=== PATIENT | female | born 1995 | race Caucasian/White ===

== ENCOUNTER 2017-02-10 18:31 | Emergency (ER) | payer MEDICAID ==
[2017-02-10 20:16] LABS: BASOPHIL % 0.3 % (0-2); PLATELET COUNT 251 x10^3mcL (130-400)
[2017-02-10 20:21] LABS: RED CELL DISTRIBUTION WIDTH 14.9 % (11.5-14.5)
[2017-02-10 20:22] LABS: CALCIUM 8.7 mg/dL (8.5-10.1); CARBON DIOXIDE 26.8 mmol/L (21-32); CHLORIDE SERUM 103 mmol/L (98-107); CREATININE SERUM 0.7 mg/dL (0.6-1.0); GFR1 > 60 mL/min; GLUCOSE SERUM 114 mg/dL (74-106); POTASSIUM SERUM 3.7 mmol/L (3.5-5.1); SODIUM SERUM 138 mmol/L (136-145)
[2017-02-10 20:26] LABS: ALBUMIN 3.5 g/dL (3.4-5.0); ALKALINE PHOSPHATASE 82 U/L (46-116); ALT/SGPT 20 U/L (14-59); AMYLASE 37 U/L (25-115); AST/SGOT 13 U/L (15-37); BILIRUBIN TOTAL 0.31 mg/dL (0.20-1.00); LIPASE 190 IU/L (73-393); TOTAL PROTEIN, SERUM 8.1 g/dL (6.4-8.2)
[2017-02-10 21:52] VITALS: BP 102/64
== END 2017-02-10 21:52 | disposition home or self-care (01) ==
LOC: ED 18:31
PROVIDERS: Emergency Medicine
DX: R10.33 Periumbilical pain (principal); R11.0 Nausea
CPT/HCPCS: 36415; 83880; J1885

== ENCOUNTER 2017-04-13 21:56 | Emergency (ER) | payer SELFPAY ==
[~2017-04-13] VITALS: Ht 165.1 cm; Wt 114.8 kg
[2017-04-13 22:47] VITALS: BP 131/76
== END 2017-04-13 22:47 | disposition home or self-care (01) ==
LOC: ED 21:56
DX: J40 Bronchitis, not specified as acute or chronic (principal); J06.9 Acute upper respiratory infection, unspecified; Z79.51 Long term (current) use of inhaled steroids
CPT/HCPCS: J1885

== ENCOUNTER 2017-06-14 13:28 | Emergency (ER) | payer SELFPAY ==
[~2017-06-14] VITALS: Ht 162.6 cm; Wt 115.7 kg
[2017-06-14 13:33] VITALS: Ht 162.6 cm; Wt 115.7 kg
[2017-06-14 15:31] VITALS: BP 128/61
== END 2017-06-14 15:31 | disposition home or self-care (01) ==
LOC: ED 13:28
DX: S16.1XXA Strain of muscle, fascia and tendon at neck level, initial encounter (principal); S46.912A Strain of unspecified muscle, fascia and tendon at shoulder and upper arm level, left arm, initial encounter; V49.9XXA Car occupant (driver) (passenger) injured in unspecified traffic accident, initial encounter; Y93.89 Activity, other specified; Y99.8 Other external cause status; Y92.89 Other specified places as the place of occurrence of the external cause

== ENCOUNTER 2017-07-19 20:21 | Inpatient (IN) | payer SELFPAY ==
[~2017-07-19] VITALS: Ht 165.1 cm; Wt 113.5 kg
[2017-07-19 20:35] VITALS: Ht 165.1 cm; Wt 113.5 kg
[2017-07-19 22:16] LABS: BASOPHIL % 0.2 % (0-2); PLATELET COUNT 322 x10^3mcL (130-400)
[2017-07-19 22:17] LABS: RED CELL DISTRIBUTION WIDTH 15.3 % (11.5-14.5)
[2017-07-19 22:24] LABS: CALCIUM 9.2 mg/dL (8.5-10.1); CARBON DIOXIDE 28.1 mmol/L (21-32); CHLORIDE SERUM 102 mmol/L (98-107); CREATININE SERUM 0.7 mg/dL (0.6-1.0); GFR1 > 60 mL/min; GLUCOSE SERUM 111 mg/dL (74-106); POTASSIUM SERUM 3.7 mmol/L (3.5-5.1); SODIUM SERUM 141 mmol/L (136-145)
[2017-07-19 22:28] LABS: ALBUMIN 3.9 g/dL (3.4-5.0); ALKALINE PHOSPHATASE 92 U/L (46-116); ALT/SGPT 11 U/L (14-59); AMYLASE 57 U/L (25-115); AST/SGOT 18 U/L (15-37); LIPASE 116 IU/L (73-393)
[2017-07-19 22:30] LABS: TOTAL PROTEIN, SERUM 8.6 g/dL (6.4-8.2)
[2017-07-20] VITALS (7 sets, daily range): BP systolic 97–124; BP diastolic 48–70
[2017-07-20 00:27] LABS: microscopic required? NO
[2017-07-20 00:42] LABS: UA SPECIFIC GRAVITY 1.015 (1.005-1.035); urine erythrocyte NEGATIVE (NEGATIVE)
[2017-07-20 01:03] LABS: AMPHETAMINE QUAL UR NONE DETECTED (NEG <=1000)
[2017-07-20 01:12] LABS: T3 TOTAL 1.26 ng/mL
[2017-07-20 01:13] LABS: CHOLESTEROL/HDL RATIO 4.5; FREE T4 1.04 ng/dL (0.76-1.46); FREE THYROXINE INDEX 2.7 ug/dL (1.4-4.5); MAGNESIUM 2.1 mg/dL (1.8-2.4); PHOSPHOROUS 3.4 mg/dL (2.5-4.9); T4(THYROXINE) 8.9 ug/dL (4.7-13.3)
[2017-07-20 06:12] LABS: BASOPHIL % 0.3 % (0-2); PLATELET COUNT 277 x10^3mcL (130-400)
[2017-07-20 06:22] LABS: RED CELL DISTRIBUTION WIDTH 15.6 % (11.5-14.5)
[2017-07-20 06:58] LABS: CALCIUM 8.6 mg/dL (8.5-10.1); CARBON DIOXIDE 27.5 mmol/L (21-32); CHLORIDE SERUM 105 mmol/L (98-107); CREATININE SERUM 0.8 mg/dL (0.6-1.0); GFR1 > 60 mL/min; GLUCOSE SERUM 108 mg/dL (74-106); POTASSIUM SERUM 3.7 mmol/L (3.5-5.1); SODIUM SERUM 142 mmol/L (136-145)
[2017-07-21 06:26] LABS: BASOPHIL % 0.3 % (0-2); PLATELET COUNT 288 x10^3mcL (130-400)
[2017-07-21 06:40] LABS: CALCIUM 8.4 mg/dL (8.5-10.1); CARBON DIOXIDE 26.1 mmol/L (21-32); CHLORIDE SERUM 107 mmol/L (98-107); CREATININE SERUM 0.8 mg/dL (0.6-1.0); GFR1 > 60 mL/min; GLUCOSE SERUM 112 mg/dL (74-106); MAGNESIUM 2.3 mg/dL (1.8-2.4); PHOSPHOROUS 3.2 mg/dL (2.5-4.9); POTASSIUM SERUM 3.7 mmol/L (3.5-5.1); SODIUM SERUM 142 mmol/L (136-145)
[2017-07-21 06:41] VITALS: BP 93/51
[2017-07-21 06:57] LABS: RED CELL DISTRIBUTION WIDTH 15.4 % (11.5-14.5)
[2017-07-21 09:16] VITALS: BP 93/51
[2017-07-21 10:23] VITALS: BP 102/60
[2017-07-21 13:33] VITALS: BP 114/71
[2017-07-21] MEDS ORDERED: COL100 PO (17:09)
[2017-07-21] MEDS ORDERED: SIMETHICONE80 MG CH (17:09)
[2017-07-21] MEDS ORDERED: IBUPROFEN400 MG PO (17:10)
== END 2017-07-21 21:00 | disposition home or self-care (01) | DRG 854 ==
LOC: ED 20:21 → DU 23:40
PROVIDERS: Emergency Medicine; Family Medicine; Surgery
PROC: 0DTJ4ZZ Resection of Appendix, Percutaneous Endoscopic Approach (ICD-10-PCS; principal; 2017-07-20 08:30)
DX: A41.9 Sepsis, unspecified organism (principal); K35.80 Unspecified acute appendicitis; Z68.41 Body mass index [BMI] 40.0-44.9, adult; R73.03 Prediabetes; K44.9 Diaphragmatic hernia without obstruction or gangrene; E66.01 Morbid (severe) obesity due to excess calories; J45.909 Unspecified asthma, uncomplicated
CPT/HCPCS: 83880; 84439; J2175; J2250; J2270; J2405; J2543; J3010; J3490; J7030; Q0092